=== PATIENT | male | born 2005 | race Caucasian/White ===

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

== ENCOUNTER 2025-01-24 13:14 | Outpatient (OUT) | payer OTHER, SELFPAY ==
[2025-01-25 06:07] LABS: Hepatitis B Surf Ab Quant <3.5 mIU/mL (Immunity>10); Measles Antibodies, IgG 53.7 AU/mL (Immune >16.4); Mumps Abs, IgG 27.2 AU/mL (Immune >10.9); Varicella-Zoster V Ab, IgG Reactive (Non Reactive)
== END 2025-01-24 13:15 | disposition home or self-care (01) ==
PROVIDERS: PCP Family Medicine; Visit Provider Family Medicine
DX: Z00.00 Encounter for general adult medical examination without abnormal findings (principal)
CPT/HCPCS: 36415; 86317; 86735; 86762; 86765; 86787

== ENCOUNTER 2025-04-02 11:11 | Outpatient (OUT) | payer OTHER, SELFPAY | END 2025-04-02 11:12 | disposition home or self-care (01) | LOC: LAB 11:13 | PROVIDERS: PCP Family Medicine; Visit Provider Family Medicine | DX: Z01.84 Encounter for antibody response examination (principal) | CPT/HCPCS: 36415; 86317 ==